=== PATIENT | female | born 1960 | race Caucasian/White ===

== ENCOUNTER 2018-09-16 07:27 | Day surgery (SDC) | payer OTHER ==
[2018-09-16] MEDS ORDERED: FENTAnyl 50 MCG/ML VIAL (10:36)
[2018-09-16] MEDS ORDERED: MIDAZOLAM 1 MG/ML 2 ML INJ ×2 (10:36)
== END 2018-09-16 11:16 | disposition home or self-care (01) ==
LOC: GIL 07:27
DX: Z12.11 Encounter for screening for malignant neoplasm of colon (principal); K29.50 Unspecified chronic gastritis without bleeding; K21.9 Gastro-esophageal reflux disease without esophagitis; D12.5 Benign neoplasm of sigmoid colon; K62.1 Rectal polyp; K64.8 Other hemorrhoids
CPT/HCPCS: 43239; 88305; 88312